=== PATIENT | male | born 1970 | race Hispanic/Latino ===

== ENCOUNTER 2024-01-30 19:25 | Emergency (ER) | payer SELFPAY ==
[~2024-01-30] VITALS: Ht 180.3 cm; Wt 107.5 kg
[2024-01-30 20:04] LABS: BASOPHILS # (AUTO) 0.06 K/uL (0.00-0.20); BASOPHILS % (AUTO) 0.3 % (0.0-5.0); HEMATOCRIT 42.3 % (42-54); IMMATURE GRANULOCYTE ABSOLUTE 0.15 K/uL (0-1); LYMPHOCYTES # (AUTO) 1.3 K/uL (1.0-4.8); MEAN CORPUSCULAR HGB CONC 35.2 g/dL (32.0-36.0); MEAN CORPUSCULAR VOLUME 90.8 fL (79-99); MONOCYTES % (AUTO) 9.3 % (3.0-13.0); NEUTROPHILS # (AUTO) 17.5 K/uL (1.8-7.7); NEUTROPHILS % (AUTO) 83.7 % (40.0-77.0); PLATELET COUNT (AUTO) 288 K/uL (130-400); RED BLOOD CELL COUNT(AUTO) 4.66 MIL/uL (4.50-6.20); RED CELL DISTRIBUTION WIDTH 11.4 % (11.0-15.5); WHITE BLOOD COUNT (AUTO) 20.9 K/uL (4.8-10.8)
[2024-01-30 20:07] LABS: APPEARANCE,URINE CLOUDY (CLEAR); BILIRUBIN,URINE NEGATIVE (NEGATIVE); COLOR,URINE YELLOW (YELLOW); GLUCOSE, URINE (UA) >=1000 mg/dL (NEGATIVE); KETONES,URINE 5 mg/dL (NEGATIVE); LEUKOCYTE ESTERASE ,URINE 500 Leu/uL (NEGATIVE); NITRATE,URINE 2+ (NEGATIVE); OCCULT BLOOD,URINE LARGE (NEGATIVE); PH,URINE 5.5 (5.0-8.0); PROTEIN,URINE 70 mg/dL (NEGATIVE); UROBILINOGEN,URINE 0.2 mg/dL (0.2-1.0)
[2024-01-30 20:08] LABS: ADD UA MICROSCOPIC YES
[2024-01-30 20:11] LABS: BACTERIA,URINE FEW /HPF (None Seen); MUCUS,URINE RARE LPF (None Seen); NON-SQUAMOUS EPITHELIAL CELL 2 /HPF (0-2); RBC,URINE 26-50 /HPF (0-1); SQUAMOUS EPITHELIAL CELL,UR RARE /HPF (0-2); WBC CLUMP MOD /HPF (0-1); WBC,URINE 26-50 /HPF (0-1)
[2024-01-30 20:11] LABS: CREATININE 1.2 mg/dL (0.5-1.3); POTASSIUM 4.2 mmol/L (3.5-5.1)
[2024-01-30] MEDS: acetaMINOPHEN 500 MG TABLET PO ONE (21:15)
[2024-01-30] MEDS: 0.9%NACL 1000ML 1,000 ML IV ONE (21:15)
[2024-01-30 21:45] LABS: RAPID GROUP A STREP negative (NEGATIVE)
[2024-01-30 21:54] LABS: INFLUENZA TYPE A Negative For Type A (NEGATIVE); INFLUENZA TYPE B Negative For Type B (NEGATIVE)
[2024-01-30 21:55] LABS: COVID19 (SARS ANTIGEN RAPID) PRESUMPTIVE NEGATIVE (NEGATIVE)
[2024-01-30 21:57] VITALS: TEMP 102
[2024-01-30] MEDS: cefTRIAXone 1G VIAL IVPB ONE (22:27)
[2024-01-30] MEDS: INSULIN humuLIN R 100 UNIT/ML 3ML SQ ONE (22:31)
[2024-01-30] MEDS ORDERED: SULF1TAB42 PO (23:09)
[2024-01-30 23:31] VITALS: BP 145/65; PULSE 72; RESP 18; O2SAT 99
== END 2024-01-30 23:40 | disposition home or self-care (01) ==
LOC: EDH 19:25
DX: N39.0 Urinary tract infection, site not specified (principal); E11.9 Type 2 diabetes mellitus without complications; Z20.822 Contact with and (suspected) exposure to COVID-19; Z79.899 Other long term (current) drug therapy
CPT/HCPCS: 99285; 96374; 71045; 96361; 87426; 82550; 84484; 80048; 85025; 87040; 87086 ×3; 87186 ×2; 87880; 87804 ×2; 83605; 81001; 36415; 96372; 93005; J1815; J7030; J0696